=== PATIENT | male | born 1995 | race Caucasian/White ===

== ENCOUNTER 2016-11-05 03:52 | Emergency (ER) | payer OTHER ==
[~2016-11-05] VITALS: Ht 190.5 cm; Wt 81.4 kg
[~2016-11-05 03:52] MED LIST: CETI10TA84 PO; IBUP-1050 PO
[2016-11-05 03:57] VITALS: TEMP 36.8; Ht 190.5 cm; Wt 81.4 kg
[2016-11-05] MEDS ORDERED: XYLOCAINE 1%/SOD BICARB 20 ML VIAL INFIL ONE (04:15)
--- NOTE | 2016-11-05 04:21 | EMERGENCY ROOM VISIT NOTE ---
ED Visit Note First contact with patient: 04:03 CHIEF COMPLAINT: Finger laceration HISTORY OF PRESENT ILLNESS: This 21 yo patient presents to the emergency department with mother after cutting the thumb finger just prior to arrival. The bleeding has not stopped. Denies weakness or numbness of the finger. The patient has full range of motion of the fingers. The patient rates the pain as mild and 2/10. The patient denies any other injuries. The patient's tetanus shot is up to date. REVIEW OF SYSTEMS: A 6 system review of systems was completed with positives and pertinent negatives listed in the HPI. ALLERGIES: Dust MEDICATIONS: None PMH: None SOCIAL HISTORY: No drug use PHYSICAL EXAM: Vital Signs: Reviewed Nurse's notes, vital signs stable. GENERAL : Pleasant male, in no acute distress, well developed, well nourished. SKIN: There is a 3 cm long laceration on the palmar aspect of the right thumb finger. The edges gape apart with traction. There is no foreign material in the wound and it looks clean. There is bleeding. No deep structures such as tendons, bones, or significant blood vessels are seen in the base of the wound. Extension and flexion of the finger is full and strong. Full range of motion of the wrist and other fingers. Capillary refill less than 2 seconds. Normal sensation to light and sharp touch. EMERGENCY DEPARTMENT COURSE: I examined the patient. Using sterile technique the wound was cleansed with Betadine. 2 ml of 1% buffered lidocaine was used to perform a digital block to anesthetize the patient. The area was sterilely draped. Once the patient was anesthetized, the wound was copiously irrigated under pressure with sterile saline. The wound was explored and there were no deep structures injured. The laceration was repaired using 5 simple interrupted 5-0 nylon sutures. The patient tolerated the procedure well. Hemostasis was achieved. The area was cleaned with sterile saline and dressed with bacitracin ointment and bandage. The patient was discharged home in good condition. DIAGNOSIS: Finger laceration, right thumb DISCHARGE INSTRUCTIONS & TREATMENT: Keep wound clean and dry. Do not allow any crusting or dried blood to accumulate on sutures. If this occurs, use a 1:1 solution of hydrogen peroxide/water on a Q-tip to clean the wound. Use an antibiotic ointment for 3-4 days, then let wound dry. Suture removal in 10-12 days. Return sooner for any signs of infection (increasing redness, swelling, drainage). Ice and elevate for swelling and pain. Ibuprofen 600 mg and Tylenol 500 mg every 6 hrs for pain. Keep covered when in sun until sutures removed then SPF 50 or higher for one year. Vitamin E oil if desired two weeks after suture removal for reduction of scar. Problem List Medical Problems: (1) Defective dental religion Status: Chronic Current/Historical Medications Scheduled PRN Cetirizine (Zyrtec), 10 MG PO DAILY PRN Ibuprofen (Advil), 200-400 MG PO Q6 PRN Allergies Coded Allergies: Dust (Verified Allergy, Unknown, SHORTNESS OF BREATH, 12/31/12) Vital Signs Date Time Temp Pulse Resp B/P (MAP) Pulse Ox O2 Delivery O2 Flow Rate FiO2 11/05/16 03:57 36.8 94 20 133/77 96 Room Air Departure Information Referrals Daniele Varghese III, M.D. (PCP) Patient Instructions My [facility]
[2016-11-05 05:12] VITALS: BP 117/62; PULSE 82; O2SAT 98
== END 2016-11-05 05:13 | disposition home or self-care (01) ==
LOC: C.EDB 03:53
DX: S61.011A Laceration without foreign body of right thumb without damage to nail, initial encounter (principal); W26.0XXA Contact with knife, initial encounter

== ENCOUNTER 2016-11-16 12:10 | Emergency (ER) | payer OTHER ==
[2016-11-16 12:12] VITALS: TEMP 36.4
--- NOTE | 2016-11-16 12:45 | EMERGENCY ROOM VISIT NOTE ---
ED Visit Note First contact with patient: 12:22 CHIEF COMPLAINT: Suture removal This patient returns to the ED today for removal of sutures on his right thumb that were placed 11 days ago. There has been no swelling, redness, or drainage from the wound. The patient feels like the laceration is healing well. REVIEW OF SYSTEMS: A complete 6 point review of systems was reviewed with the patient with pertinent positives and negatives as per history of present illness. All else were negative. PMH: The patient is healthy; there is no significant medical or surgical history. MEDS: None ALLERGIES: None SOCIAL HISTORY: Patient lives locally with family. He denies drug, alcohol, tobacco use. PHYSICAL EXAM: Vital Signs: Reviewed Nurse's notes. Skin: There is a sutured wound on the right thumb with no signs of infection. There is no erythema, swelling, or tenderness. The wound edges did heal together nicely. [address] EMERGENCY DEPARTMENT COURSE: The sutures were removed without any difficulty and there was no separation of the wound edges. The wound was bandaged with bacitracin ointment and a Band-Aid. The patient was discharged home in good condition. DIFFERENTIAL DIAGNOSIS: Dehiscence, cellulitis, and others. DIAGNOSIS: Healing laceration and suture removal DISCHARGE INSTRUCTIONS AND TREATMENT: Proper wound care is essential for adequate wound healing and infection prevention. You can shower and clean the wound with soap and water. Do not scour over the wound, pat dry with a towel. Do not submerse the wound (i.e. bathe or dish wash) until the wound has fully healed. You can use an antibiotic ointment with a dressing over the wound for the next 3-4 days. After this time you may leave the wound dry and open to the air. Please return to the emergency department for further evaluation if you experience increased redness, drainage, pus, fever, chills, body aches, worsening pain, or other associated symptoms. Problem List Medical Problems: (1) Defective dental adventism Status: Chronic Current/Historical Medications No Active Prescriptions or Reported Meds Allergies Coded Allergies: Dust (Verified Allergy, Unknown, SHORTNESS OF BREATH, 11/05/16) Vital Signs Date Time Temp Pulse Resp B/P (MAP) Pulse Ox O2 Delivery O2 Flow Rate FiO2 11/16/16 12:12 36.4 80 20 113/77 97 Room Air Departure Information Impression Primary Impression: Encounter for removal of sutures Additional Impression: Laceration of right thumb Dispostion Home / Self-Care Condition GOOD Prescriptions No Active Prescriptions or Reported Meds Referrals Daniele Varghese III, M.D. (PCP) Patient Instructions [facility] Additional Instructions Proper wound care is essential for adequate wound healing and infection prevention. You can shower and clean the wound with soap and water. Do not scour over the wound, pat dry with a towel. Do not submerse the wound (i.e. bathe or dish wash) until the wound has fully healed. You can use an antibiotic ointment with a dressing over the wound for the next 3-4 days. After this time you may leave the wound dry and open to the air. Please return to the emergency department for further evaluation if you experience increased redness, drainage, pus, fever, chills, body aches, worsening pain, or other associated symptoms. Problem Qualifiers Additional Impression: Laceration of right thumb Encounter type: subsequent encounter Damage to nail status: without damage Foreign body presence: without foreign body Qualified Codes: S61.011D - Laceration without foreign body of right thumb without damage to nail, subsequent encounter
[2016-11-16 12:51] VITALS: BP 125/75; PULSE 77; O2SAT 98
== END 2016-11-16 12:52 | disposition home or self-care (01) ==
LOC: C.EDD 12:47
DX: Z48.02 Encounter for removal of sutures (principal); S61.011A Laceration without foreign body of right thumb without damage to nail, initial encounter; X58.XXXA Exposure to other specified factors, initial encounter